=== PATIENT | female | born 1995 | race Caucasian/White ===

== ENCOUNTER 2016-12-28 18:31 | Emergency (ER) | payer BC ==
[2016-12-28 19:59] LABS: HEMOGLOBIN 14.8 gm/dl (12.3-15.3); RED BLOOD COUNT 4.63 M/UL (4.00-5.10); WHITE BLOOD COUNT 13.8 K/UL (4.5-11.0)
[2016-12-28 20:17] LABS: BUN/CREATININE RATIO 19 (0-10)
== END 2016-12-28 22:30 | disposition home or self-care (01) ==
LOC: ER1 18:31
PROVIDERS: Nurse Practitioner Family
DX: N83.201 Unspecified ovarian cyst, right side (principal); Z79.899 Other long term (current) drug therapy; Z88.2 Allergy status to sulfonamides; Z91.040 Latex allergy status
CPT/HCPCS: 36415; 80053; 81001; 82150; 83690; 84703; 85025; 87086; 99284; J7050; Q9962

== ENCOUNTER → 2021-11-28 | Outpatient (CLI) | payer OTHER ==
[~2021-11-28] MED LIST: NORCO 5-325 TA1 EACH PO; OMNICEF 300 MG300 MG PO
[2021-11-28 10:50] LABS: HEMOGLOBIN 13.2 gm/dl (12.3-15.3); RED BLOOD COUNT 4.16 M/UL (4.00-5.10)
[2021-11-29 07:12] LABS: A/G RATIO 2.6 (1.2-2.2); ALKALINE PHOSPHATASE, S 50 IU/L (44-121); ALT (SGPT) 15 IU/L (0-32); AST (SGOT) 16 IU/L (0-40); BILIRUBIN, TOTAL 0.5 mg/dL (0.0-1.2); BUN 11 mg/dL (6-20); BUN/CREATININE RATIO 17 (9-23); CALCIUM, SERUM 9.5 mg/dL (8.7-10.2); CARBON DIOXIDE, TOTAL 22 mmol/L (20-29); CHLORIDE, SERUM 103 mmol/L (96-106); CHOLESTEROL, TOTAL 127 mg/dL (100-199); CREATININE, SERUM 0.66 mg/dL (0.57-1.00); EGFR IF AFRICN AM 139 (>59); EGFR IF NONAFRICN AM 121 (>59); GLOBULIN, TOTAL 1.8 g/dL (1.5-4.5); GLUCOSE, SERUM 78 mg/dL (65-99); HDL CHOLESTEROL 64 mg/dL (>39); LDL CHOLESTEROL CALC 53 mg/dL (0-99); LDL/HDL RATIO 0.8 ratio (0.0-3.2); POTASSIUM, SERUM 4.2 mmol/L (3.5-5.2); PROTEIN, TOTAL, SERUM 6.4 g/dL (6.0-8.5); SODIUM, SERUM 139 mmol/L (134-144); TRIGLYCERIDES 42 mg/dL (0-149); VITAMIN D, 25-HYDROXY 49.5 ng/mL (30.0-100.0)
[2021-11-29 08:14] LABS: THYROID PEROXIDASE (TPO) AB 8 IU/mL (0-34)
[2021-11-29 14:14] LABS: THYROGLOBULIN ANTIBODY <1.0 IU/mL (0.0-0.9)
[2021-11-30 01:09] LABS: ANTISTREPTOLYSIN O AB 246.5 IU/mL (0.0-200.0); RHEUMATOID ARTHRITIS FACTOR <10.0 IU/mL (<14.0)
== END ==
LOC: LAB 09:51
PROVIDERS: Nurse Practitioner Family
DX: Z13.220 Encounter for screening for lipoid disorders (principal); Z00.00 Encounter for general adult medical examination without abnormal findings; M19.90 Unspecified osteoarthritis, unspecified site; F31.81 Bipolar II disorder; F98.8 Other specified behavioral and emotional disorders with onset usually occurring in childhood and adolescence; R53.83 Other fatigue; E55.9 Vitamin D deficiency, unspecified; L65.9 Nonscarring hair loss, unspecified; R30.0 Dysuria; M25.50 Pain in unspecified joint
CPT/HCPCS: 36415; 80053; 80061; 81001; 82607; 84439; 84443; 84550; 85025; 85652; 86038; 86060; 86141; 86376; 86431; 86800

== ENCOUNTER → 2021-12-21 | Outpatient (CLI) | payer OTHER | LOC: EXRD 11:07 | DX: M54.50 Low back pain, unspecified (principal); M54.6 Pain in thoracic spine | CPT/HCPCS: 72070; 72100 ==

== ENCOUNTER → 2022-02-14 | Outpatient (CLI) | payer OTHER ==
[2022-02-15 08:16] LABS: HBSAG SCREEN Negative (Negative); HEP A AB, IGM Negative (Negative); HEP B CORE AB, IGM Negative (Negative); HEP C VIRUS AB 0.2 (0.0-0.9); HIV AB/P24 AG SCREEN Non Reactive (Non Reactive)
[2022-02-15 15:12] LABS: TREPONEMA PALLIDUM ANTIBODIES Non Reactive (Non Reactive)
== END ==
LOC: LAB 09:13
PROVIDERS: Nurse Practitioner Family
DX: Z72.51 High risk heterosexual behavior (principal)
CPT/HCPCS: 36415; 80074; 86695; 86696; 86780; 87389